=== PATIENT | female | born 2000 | race Caucasian/White ===

== ENCOUNTER 2019-04-25 16:39 | Emergency (ER) | payer OTHER ==
[~2019-04-25] VITALS: Ht 172.7 cm; Wt 98.9 kg
[2019-04-25 17:01] VITALS: Ht 172.7 cm; Wt 98.9 kg
[2019-04-25 19:28] VITALS: BP 134/84; PULSE 104; RESP 16
== END 2019-04-25 19:28 | disposition home or self-care (01) ==
LOC: FTE 16:39
DX: R04.0 Epistaxis (principal)
CPT/HCPCS: 99282